=== PATIENT | male | born 1985 ===

== ENCOUNTER 2017-08-28 10:38 | Emergency (ER) | payer OTHER ==
[2017-08-28] MEDS ORDERED: Sodium Chloride 0.9% 1,000 ML IV STA (11:30)
--- NOTE | 2017-08-28 11:39 | ED PDOC ---
HPI: Abdomen Time Seen by Provider: 08/28/17 11:25 Chief Complaint (Nursing): Abdominal Pain Chief Complaint (Provider): Abdominal Pain History Per: Patient History/Exam Limitations: no limitations Onset/Duration Of Symptoms: Days (x4 months) Current Symptoms Are (Timing): Still Present Quality Of Discomfort: "Pain" Associated Symptoms: Nausea, Diarrhea (mucousy watery x 4 months). denies: Fever, Vomiting Additional Complaint(s): 32 year old male with a history of anxiety presents to the ED complaining of lower abdominal discomfort associated mucousy watery diarrhea and nausea onset four months. He denies vomiting, fever, blood in stools, or any other medical complaints. PMD: none provided Past Medical History Reviewed: Historical Data, Nursing Documentation, Vital Signs Vital Signs: Last Vital Signs Temp 98.6 F 08/28/17 10:48 Pulse 98 H 08/28/17 10:48 Resp 21 08/28/17 10:48 BP 152/87 H 08/28/17 10:48 Pulse Ox 100 08/28/17 14:15 - Medical History PMH: Anxiety - Surgical History Surgical History: No Surg Hx - Family History Family History: States: Unknown Family Hx - Social History Current smoker - smoking cessation education provided: Yes (some days) Ex-Smoker (has not smoked in the last 12 months): No Alcohol: Social Drugs: Cannabis - Home Medications Home Medications: Ambulatory Orders Medication Instructions Recorded Atropine/Diphenoxylate [Lonox 1 tab PO TID #10 tab 08/28/17 0.025 MG-2.5 MG] Doxycycline Monohydrate 100 mg PO BID #20 tablet 08/28/17 - Allergies Allergies/Adverse Reactions: Allergies Allergy/AdvReac Type Severity Reaction Status Date / Time No Known Allergies Allergy Verified 08/28/17 11:10 Review of Systems Constitutional: Negative for: Fever Gastrointestinal: Positive for: Nausea, Abdominal Pain (lower), Diarrhea ( mucousy and watery ), Other (no blood in stool). Negative for: Vomiting Physical Exam - Reviewed Nursing Documentation Reviewed: Yes Vital Signs Reviewed: Yes - Physical Exam Appears: Positive for: Non-toxic, No Acute Distress Head Exam: Positive for: ATRAUMATIC, NORMOCEPHALIC Skin: Positive for: Normal Color, Warm, Dry Eye Exam: Positive for: Normal appearance, EOMI, PERRL ENT: Positive for: Other (moist mucous membranes) Cardiovascular/Chest: Positive for: Regular Rate, Rhythm Respiratory: Positive for: Normal Breath Sounds Gastrointestinal/Abdominal: Positive for: Soft, Tenderness (mild tenderness RUQ RLQ). Negative for: Guarding, Rebound Neurologic/Psych: Positive for: Alert, Oriented (x3). Negative for: Motor/ Sensory Deficits - Laboratory Results Result Diagrams: 08/28/17 11:45 08/28/17 11:45 - ECG O2 Sat by Pulse Oximetry: 100 (RA) Pulse Ox Interpretation: Normal Medical Decision Making Medical Decision Making: Time: 11:30 Initial Plan: --CT ABD & pelvis IV contrast --CMP --CBC with differentials --NS IV 150 mls/hr Time: 13:41 CT abd & pelvis: FINDINGS: LOWER THORAX: Unremarkable. LIVER: Hepatic steatosis. No gross lesion or ductal dilatation. GALLBLADDER AND BILE DUCTS: Cholelithiasis without CT evidence of acute cholecystitis. PANCREAS: Unremarkable. No gross lesion or ductal dilatation. SPLEEN: Unremarkable. ADRENALS: Unremarkable. No mass. KIDNEYS AND URETERS: Unremarkable. No hydronephrosis. No solid mass. Incidental finding(s): Bilateral simple renal cysts the preponderance of which are less than 1 cm. Largest cyst in the left kidney measures 1.9 cm. VASCULATURE: Unremarkable. No aortic aneurysm. BOWEL: The colon is collapsed accentuating thickening of the wall of the left hemicolon. There is evidence of diverticular disease without an acute inflammatory component. APPENDIX: Normal appendix. PERITONEUM: Unremarkable. No free fluid. No free air. LYMPH NODES: Unremarkable. No enlarged lymph nodes. BLADDER: Unremarkable. REPRODUCTIVE: Unremarkable. BONES: No acute fracture. OTHER FINDINGS: None. IMPRESSION: Small gallstones and perhaps gallbladder polyps identified without evidence of gallbladder wall thickening or pericholecystic fluid. Additional benign and/or incidental findings described above. ---- Scribe Attestation: Documented by Rosalba Limon, acting as a scribe for Jason Benton MD Provider Scribe Attestation: All medical record entries made by the Scribe were at my direction and personally dictated by me. I have reviewed the chart and agree that the record accurately reflects my personal performance of the history, physical exam, medical decision making, and the department course for this patient. I have also personally directed, reviewed, and agree with the discharge instructions and disposition. Disposition - Clinical Impression Clinical Impression: Diverticulosis - Patient ED Disposition Is Patient to be Admitted: No Counseled Patient/Family Regarding: Studies Performed, Diagnosis, Need For Followup, Rx Given - Disposition Referrals: Zain Dillard MD [Staff Provider] - Disposition: Routine/Home Disposition Time: 14:42 Condition: FAIR Prescriptions: Atropine/Diphenoxylate [Lonox 0.025 MG-2.5 MG] 1 tab PO TID #10 tab Doxycycline Monohydrate 100 mg PO BID #20 tablet Instructions: Diverticulosis, Gallstones Forms: [employer] (Mauritian)
[2017-08-28 11:55] LABS: BASO # 0.1 K/uL (0.0-0.2); BASO % 0.9 % (0.0-2.0); EOS # 0.2 K/uL (0.0-0.7); EOS % 2.8 % (0.0-4.0); HEMOGLOBIN 14.5 g/dL (12.0-18.0); LYMPH # 1.1 K/uL (1.0-4.3); LYMPH % 14.7 % (20.0-40.0); MEAN CELL VOLUME 81.5 fl (80.0-94.0); MEAN CORPUSCULAR HEMOGLOBIN 28.1 pg (27.0-31.0); MEAN CORPUSCULAR HGB CONC 34.4 g/dL (33.0-37.0); MEAN PLATELET VOLUME 7.2 fl (7.2-11.7); MONO # 0.6 K/uL (0.0-0.8); MONO % 8.2 % (0.0-10.0); NEUT # 5.5 K/uL (1.8-7.0); NEUT % 73.4 % (50.0-75.0); NRBC % 0.1 % (0.0-0.0); RBC 5.17 Mil/uL (4.40-5.90); RED CELL DISTRIBUTION WIDTH 13.9 % (11.5-14.5); WHITE BLOOD COUNT 7.6 K/uL (4.8-10.8)
[2017-08-28 12:01] LABS: BLOOD UREA NITROGEN 11 mg/dl (9-20); GFR AFRICAN-AMERICAN > 60; GFR NON-AFRICAN AMERICAN > 60
[2017-08-28 12:02] LABS: ALB/GLOB RATIO 1.2 (1.0-2.1); ALT/SGPT 42 U/L (21-72); AST/SGOT 28 U/L (17-59)
[2017-08-28] MEDS ORDERED: Iohexol 300 100 ML IJ ONE (12:45)
[2017-08-28] MEDS ORDERED: Sodium Chloride 0.9% 50 ML IV ONE (12:45)
--- NOTE | 2017-08-28 13:42 | CT ---
PROCEDURE: CT Abdomen and Pelvis with contrast HISTORY: Diarrhea, lower abdominal pain. COMPARISON: None. TECHNIQUE: Contrast dose: 95 cc Visipaque 320 Radiation dose: Total exam DLP = 881.48 mGy-cm. This CT exam was performed using one or more of the following dose reduction techniques: Automated exposure control, adjustment of the mA and/or kV according to patient size, and/or use of iterative reconstruction technique. FINDINGS: LOWER THORAX: Unremarkable. LIVER: Hepatic steatosis. No gross lesion or ductal dilatation. GALLBLADDER AND BILE DUCTS: Cholelithiasis without CT evidence of acute cholecystitis. PANCREAS: Unremarkable. No gross lesion or ductal dilatation. SPLEEN: Unremarkable. ADRENALS: Unremarkable. No mass. KIDNEYS AND URETERS: Unremarkable. No hydronephrosis. No solid mass. Incidental finding(s): Bilateral simple renal cysts the preponderance of which are less than 1 cm. Largest cyst in the left kidney measures 1.9 cm. VASCULATURE: Unremarkable. No aortic aneurysm. BOWEL: The colon is collapsed accentuating thickening of the wall of the left hemicolon. There is evidence of diverticular disease without an acute inflammatory component. APPENDIX: Normal appendix. PERITONEUM: Unremarkable. No free fluid. No free air. LYMPH NODES: Unremarkable. No enlarged lymph nodes. BLADDER: Unremarkable. REPRODUCTIVE: Unremarkable. BONES: No acute fracture. OTHER FINDINGS: None. IMPRESSION: Small gallstones and perhaps gallbladder polyps identified without evidence of gallbladder wall thickening or pericholecystic fluid. Additional benign and/or incidental findings described above.
[2017-08-28 15:13] VITALS: BP 138/74; PULSE 88; RESP 16; TEMP 98.2; O2SAT 98
== END 2017-08-28 15:11 | disposition home or self-care (01) ==
LOC: H.ER 10:38
DX: K80.20 Calculus of gallbladder without cholecystitis without obstruction (principal); K57.90 Diverticulosis of intestine, part unspecified, without perforation or abscess without bleeding; F41.9 Anxiety disorder, unspecified
CPT/HCPCS: 74177; 80053; 85025; 96360; 96361; 99283; J7030; Q9967